=== PATIENT | female | born 1960 | race Caucasian/White ===

== ENCOUNTER 2018-04-21 14:15 | Emergency (ER) | END 2018-04-21 16:29 | disposition home or self-care (01) ==

== ENCOUNTER 2019-03-12 11:32 | Day surgery (SDC) | payer OTHER ==
[~2019-03-12] VITALS: Ht 162.6 cm; Wt 89.4 kg
[~2019-03-12 11:32] MED LIST: IBUP-1542 PO
[2019-03-12 12:22] VITALS: Ht 162.6 cm; Wt 89.4 kg
[2019-03-12] MEDS ORDERED: THYROID MED PO (12:26)
[2019-03-12] MEDS ORDERED: [UNRECOGNIZED DRUG - OTHER] (12:26)
[2019-03-12 13:42] VITALS: BP 117/57; PULSE 53; RESP 18
[2019-03-12] MEDS ORDERED: FENTAnyl 50 MCG/ML VIAL ONE (14:38)
[2019-03-12] MEDS ORDERED: MIDAZOLAM 1 MG/ML 2 ML INJ ONE ×2 (14:39)
[2019-03-12 14:56] VITALS: BP 109/62; PULSE 52; RESP 16
== END 2019-03-12 15:42 | disposition home or self-care (01) ==
LOC: GIL 11:32
PROVIDERS: ATTEND Internal Medicine Gastroenterology
DX: Z12.11 Encounter for screening for malignant neoplasm of colon (principal); K64.8 Other hemorrhoids; K29.60 Other gastritis without bleeding; D12.5 Benign neoplasm of sigmoid colon; D12.3 Benign neoplasm of transverse colon
CPT/HCPCS: 43239; 45380; 88305; 88312; J2250; J3010; Z7610